=== PATIENT | male | born 1985 | race Caucasian/White ===

== ENCOUNTER 2022-06-21 19:15 | Inpatient (IN) | payer OTHER ==
[2022-06-21] MEDS ORDERED: CLINDAMYCIN 600MG PREMIX IVPB 600 MG/50 ML BAG IVPB ONE ×2 (19:40→20:06)
[2022-06-21 19:43] VITALS: BMI 31.0
[2022-06-21 20:16] LABS: INR 1.09 (0.83-1.09); PROTHROMBIN TIME (PATIENT) 12.5 SEC (9.7-13.0)
[2022-06-21 20:23] LABS: ALBUMIN 4.5 g/dl (3.4-5.0); BILIRUBIN,TOTAL 0.7 mg/dl (0.2-1); CALCIUM 9.3 mg/dl (8.5-10); CREATININE 0.5 mg/dl (0.55-1.3); TOT PROT 7.7 g/dl (6.4-8.2)
[2022-06-21 20:28] LABS: HEMATOCRIT 49.6 % (35.4-49); HEMOGLOBIN 17.7 G/dL (11.7-16.9); MCH 31.2 pg (25.7-33.7); MCHC 35.6 g/dl (32.0-35.9); MEAN CELL VOLUME 87.4 fl (80-96); MEAN PLT VOLUME 9.2 fl (7.5-11.1); PLATELET COUNT 167.8 10^3/uL (134-434); RBC 5.67 10^6/uL (4.00-5.60); RDW 13.2 % (11.9-15.9); WHITE BLOOD COUNT 12.7 10^3/uL (4.0-10.8)
[2022-06-21] MEDS ORDERED: PIPERACILLIN/TAZOB 3.375 GM 3.375 GM in DEXTROSE 5%-WATER - 50 ML IVPB ONE (20:50)
[2022-06-21] MEDS ORDERED: VANCOMYCIN 1,000 MG in DEXTROSE 5%-WATER - 250 ML IVPB ONE (21:03)
[2022-06-21] MEDS ORDERED: SODIUM CHLORIDE 0.9% 500 ML INFUS.BAG IV ONE (22:14)
[2022-06-21 22:18] LABS: PLATELET ESTIMATE ADEQUATE
[2022-06-21] MEDS ORDERED: VANCOMYCIN 1,000 MG VIAL (RESTRICTED TO ID ONLY) ONE (22:56)
[2022-06-22] MEDS ORDERED: ACETAMINOPHEN 1000 MG/100 ML BAG IVPB PRN (01:00)
[2022-06-22] MEDS: SODIUM CHLORIDE 1,000 ML IV SCH (07:22)
[2022-06-22] MEDS: AMPICILLIN NA/SULBACTAM NA 3 GM in SODIUM CHLORIDE 100 ML IVPB SCH ×3 (10:07→21:22)
[2022-06-22] MEDS: INSULIN SLIDING SCALE (NOVOLOG) 1 VIAL SQ SCH ×3 (11:50→21:23)
[2022-06-23] MEDS: SODIUM CHLORIDE 1,000 ML IV SCH (02:05)
[2022-06-23] MEDS: AMPICILLIN NA/SULBACTAM NA 3 GM in SODIUM CHLORIDE 100 ML IVPB SCH ×4 (02:06→20:56)
[2022-06-23] MEDS: INSULIN SLIDING SCALE (NOVOLOG) 1 VIAL SQ SCH ×4 (06:58→21:22)
[2022-06-23 07:37] LABS: HEMATOCRIT 46.7 % (35.4-49); HEMOGLOBIN 16.4 G/dL (11.7-16.9); MCH 31.3 pg (25.7-33.7); MCHC 35.1 g/dl (32.0-35.9); MEAN PLT VOLUME 8.9 fl (7.5-11.1); PLATELET COUNT 147.1 10^3/uL (134-434); RBC 5.25 10^6/uL (4.00-5.60); WHITE BLOOD COUNT 6.7 10^3/uL (4.0-10.8)
[2022-06-23 07:48] LABS: ALBUMIN 3.5 g/dl (3.4-5.0); BILIRUBIN,TOTAL 1.1 mg/dl (0.2-1); CALCIUM 8.3 mg/dl (8.5-10); CREATININE 0.5 mg/dl (0.55-1.3); TOT PROT 6.5 g/dl (6.4-8.2)
[2022-06-23 08:23] LABS: PLATELET ESTIMATE ADEQUATE
[2022-06-23] MEDS: INSULIN (LEVEMIR) 100 UNITS/ML UNITS SQ SCH ×2 (09:11→21:21)
[2022-06-23] MEDS: DOXYCYCLINE INJECTION 100 MG in DEXTROSE 5%-WATER 100 ML IVPB SCH ×2 (12:50→21:33)
[2022-06-24] MEDS: SODIUM CHLORIDE 1,000 ML IV SCH (03:51)
[2022-06-24] MEDS: AMPICILLIN NA/SULBACTAM NA 3 GM in SODIUM CHLORIDE 100 ML IVPB SCH ×4 (03:51→20:24)
[2022-06-24] MEDS: INSULIN (LEVEMIR) 100 UNITS/ML UNITS SQ SCH ×2 (07:05→22:16)
[2022-06-24] MEDS: INSULIN SLIDING SCALE (NOVOLOG) 1 VIAL SQ SCH ×4 (07:05→22:16)
[2022-06-24] MEDS: DOXYCYCLINE INJECTION 100 MG in DEXTROSE 5%-WATER 100 ML IVPB SCH ×2 (09:34→22:15)
[2022-06-24 10:33] LABS: HEMATOCRIT 46.5 % (35.4-49); MCH 30.4 pg (25.7-33.7); MCHC 34.5 g/dl (32.0-35.9); MEAN CELL VOLUME 88.2 fl (80-96); MEAN PLT VOLUME 8.9 fl (7.5-11.1); PLATELET COUNT 158.4 10^3/uL (134-434); RBC 5.27 10^6/uL (4.00-5.60); RDW 13.5 % (11.9-15.9); WHITE BLOOD COUNT 6.9 10^3/uL (4.0-10.8)
[2022-06-24 10:43] LABS: ALBUMIN 3.5 g/dl (3.4-5.0); BILIRUBIN,TOTAL 0.8 mg/dl (0.2-1); CALCIUM 8.4 mg/dl (8.5-10); CREATININE 0.5 mg/dl (0.55-1.3); TOT PROT 6.6 g/dl (6.4-8.2)
[2022-06-25] MEDS: AMPICILLIN NA/SULBACTAM NA 3 GM in SODIUM CHLORIDE 100 ML IVPB SCH ×4 (02:15→20:29)
[2022-06-25] MEDS: SODIUM CHLORIDE 1,000 ML IV SCH (02:17)
[2022-06-25] MEDS: INSULIN SLIDING SCALE (NOVOLOG) 1 VIAL SQ SCH ×4 (07:04→21:46)
[2022-06-25] MEDS: INSULIN (LEVEMIR) 100 UNITS/ML UNITS SQ SCH ×2 (07:05→21:47)
[2022-06-25 09:10] LABS: ALBUMIN 3.5 g/dl (3.4-5.0); BILIRUBIN,TOTAL 0.9 mg/dl (0.2-1); CREATININE 0.4 mg/dl (0.55-1.3); TOT PROT 6.5 g/dl (6.4-8.2)
[2022-06-25] MEDS: DOXYCYCLINE INJECTION 100 MG in DEXTROSE 5%-WATER 100 ML IVPB SCH ×2 (10:35→21:45)
[2022-06-25 10:39] LABS: HEMATOCRIT 47.4 % (35.4-49); HEMOGLOBIN 16.4 GM/dL (11.7-16.9); MCH 30.3 pg (25.7-33.7); MCHC 34.6 g/dl (32.0-35.9); MEAN CELL VOLUME 87.5 fl (80-96); MEAN PLT VOLUME 9.1 fl (7.5-11.1); PLATELET COUNT 193 10^3/uL (134-434); RBC 5.41 M/mm3 (4.00-5.60); RDW 12.8 % (11.9-15.9); WHITE BLOOD COUNT 7.1 K/mm3 (4.0-10.0)
[2022-06-25] MEDS ORDERED: POTASSIUM CHLORIDE TABS 20 MEQ TABLET.ER (FP) PO ONE (12:00)
[2022-06-25] MEDS ORDERED: LORazepam 2 MG/ML SDV VIAL IVPUSH PRN (12:54)
[2022-06-25] MEDS: LACTOBACILLUS ACIDOPHILUS 1 TABLET PO SCH (14:23)
[2022-06-26] MEDS: AMPICILLIN NA/SULBACTAM NA 3 GM in SODIUM CHLORIDE 100 ML IVPB SCH ×2 (02:22→11:13)
[2022-06-26] MEDS: INSULIN SLIDING SCALE (NOVOLOG) 1 VIAL SQ SCH ×2 (06:47→11:16)
[2022-06-26] MEDS: INSULIN (LEVEMIR) 100 UNITS/ML UNITS SQ SCH (06:47)
[2022-06-26 08:36] LABS: CREATININE 0.6 mg/dl (0.55-1.3)
[2022-06-26 09:16] LABS: CALCIUM 8.9 mg/dl (8.5-10)
[2022-06-26] MEDS: LACTOBACILLUS ACIDOPHILUS 1 TABLET PO SCH (10:23)
[2022-06-26] MEDS: DOXYCYCLINE INJECTION 100 MG in DEXTROSE 5%-WATER 100 ML IVPB SCH (10:23)
[2022-06-26 11:01] VITALS: BP 151/94; PULSE 74; RESP 18; TEMP 98.4
== END 2022-06-26 13:48 | disposition home or self-care (01) | DRG 383 ==
LOC: FER 19:15 → FM/S 06-22 01:15
PROVIDERS: ADMIT Internal Medicine; ATTEND Internal Medicine
DX: L03.012 Cellulitis of left finger (principal); M79.89 Other specified soft tissue disorders; F10.20 Alcohol dependence, uncomplicated; E11.9 Type 2 diabetes mellitus without complications; K70.10 Alcoholic hepatitis without ascites; E66.9 Obesity, unspecified; E78.5 Hyperlipidemia, unspecified; D72.829 Elevated white blood cell count, unspecified; R60.9 Edema, unspecified; E87.6 Hypokalemia; Z68.30 Body mass index [BMI] 30.0-30.9, adult
CPT/HCPCS: 36415; 73130-TC-LT-FY; 80048; 80053; 80061; 82962; 83036; 83735; 84443; 85027; 85610; 85651; 86140; 86850; 86900; 86901; 93005; 97116-GP; 97161-GP; 99285-25; C9803-CS; U0003; U0005